=== PATIENT | male | born 1955 | race African-American/Black ===

== ENCOUNTER 2023-11-12 10:43 | Outpatient (AMB) | payer MEDICARE, MEDICAID, SELFPAY ==
--- NOTE | 2023-11-12 10:53 | MHC.OFFVIS ---
Vital Signs 11/12/23 10:55 Height 5 ft 11 in Weight 190 lb BMI 26.5 BP 126/72 Blood Pressure Location Rt brachial Position Sitting Respiration 16 Pulse 63 Pulse Source Pulse Oximeter Pulse Oximetry (%) 99 Oxygen Delivery Method Room Air Intake Visit Reasons: ENP-Seizure disorder Intake Note: Pt presents to the office for new pt consultation for seizure disorder. Umbrella Finisher Required: No Allergies No Known Allergies Allergy (Verified 11/12/23 10:54) Medication List - Last Reconciled 11/15/23 by HALLIE Smith atorvastatin 40 mg PO DAILY carvedilol 12.5 mg PO BID insulin glargine (Basaglar KwikPen U-100 Insulin) units subcut levetiracetam 1,500 mg PO BID lisinopril 10 mg PO DAILY metformin 1,000 mg PO BID HPI Comments Details: Right-handed 68-yr-old male presents for neurological evaluation of seizure disorder. Pt is accompanied by his guardian and brother, Eric. Pt himself is a poor historian d/t profound STM loss. History is obtained from pt's brother and review of [facility] notes. 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 Pt's brother states that pt suffered a large subarchnoid bleed prior to 2009, and then developed seizures and STM loss. Denies h/o seizure activity prior to SAH. He is on Keppra 500mg po TID. His brother states his last seizure was 2-3 months ago, but does not know what his typical seizure presents as. Per SNF notes rec'd- pt is currently on Keppra 1500mg bid. Per [facility], last fill of VimPat 200mg bid was in Mar 2023. Pt denies usual pain, mood changes, anxiety/irritability. Pt states he is eating well, sleeping well. Per review of [facility] notes: July 2021, [facility] admission- for new onset seizure activity in the setting of past subarachnoid hemorrhage, right anterior temporal and right parietal encephalomalacia and was discharged on Keppra 500 twice daily. August 2022 hospital admission: for left-sided weakness and left gaze deviation without any evidence of acute stroke and had a witnessed seizure in the ER, was given Keppra 2 g and discharged on Keppra 2 g daily.? Dec 2022 [facility] admission- for episodes of incontinence as well as staring/gazing episodes, was found to be in status on video EEG treated with Keppra, Vimpat and Ativan, and was subsequently intubated, treated with fentanyl, Vimpat, valproic acid and propofol.? Hospital course complicated by aspiration pneumonia, discharged to rehab, Depakote had been planned to be discontinued on 01/08, he was discharged on Keppra 1.5 g every 12 hours lacosamide 200 twice daily. Out-pt [facility] neurology appt on 04/12/23: accompanied by his neice?timmy Jorge?([phone]), POA is his brother Eric Patel ([phone]), currently at [facility] living in the dementia unit, there is no paperwork that accompanied him today.??No definite seizures?since he was discharged?from the hospital, appears to be tolerating his medication well?they were unsure?if he had actually stopped the?Depakote, never unsure of what his current meds were. Keppra and Vimpat were continued. Pt has not had f/u at [facility] neuro since Mar. Prior workup: CT head 12/13/2022: There is chronic bifrontal and right parietal, temporal encephalomalacia with ex vacuo dilatation of the right lateral ventricle, there is also basilar artery stent noted, as well as left-sided ventriculoperitoneal shunt with the tip at the occipital horn in the left lateral ventricle unchanged. [facility] Medical History (Updated 11/15/23 @ 21:17 by HALLIE Smith) SAH (subarachnoid hemorrhage) Encephalopathy Hyperlipidemia Essential hypertension Onychomycosis Vascular dementia Seizure Cataract Microalbuminuria Diabetes Surgical History (Updated 11/15/23 @ 21:13 by HALLIE Smith) S/P coil embolization of cerebral aneurysm Family History Mother HTN (hypertension) Diabetes Sister Diabetes HTN (hypertension) Social History Alcohol intake: never Patient Tobacco Use Status: Former Tobacco user Review of Systems Const All systems reviewed & are unremarkable except as noted in HPI and below Physical Exam Vital Signs: Last Vital Signs Pulse 63 11/12/23 10:55 Resp 16 11/12/23 10:55 BP 126/72 11/12/23 10:55 Pulse Ox 99 11/12/23 10:55 Oxygen Delivery Method Room Air 11/12/23 10:55 BMI result Body Mass Index 26.5 Const General: cooperative and no acute distress HEENT Head: Yes normocephalic Resp Effort & Inspection: normal respiratory effort and able to speak in complete sentences Neuro Other: A&O to person, and partially to location. He has very poor STM. He is able to follow instructions throughout the PE. 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 Pt has had positive VEEG at [facility]. Code(s): G40.909 - Epilepsy, unspecified, not intractable, without status epilepticus Category: Medical Plan Continue Keppra 1500mg bid. Pt has not had any witnessed seizure activity since moving into fpc. Possibly pt was having previous breakthrough seizures r/t poor medication compliance related to poor STM. If seizure s/s recur, resume Lacosamide 200mg bid and refer back to [facility] in their epilepsy clinic. Pt to follow-up in 6 months or sooner prn. Coding Level of Care Code New Pt Level 4 (27314) Diagnoses Seizure disorder G40.909
[2023-11-12 10:55] VITALS: BP 126/72; PULSE 63; RESP 16; O2SAT 99; BMI 26.5
== END 2023-11-12 11:47 | disposition home or self-care (01) ==
PROVIDERS: PCP Internal Medicine; Visit Provider Nurse Practitioner Family
DX: G40.909 Epilepsy, unspecified, not intractable, without status epilepticus (principal)
CPT/HCPCS: 99204

== ENCOUNTER → 2023-11-12 10:43 | Outpatient (BNVA) | payer MEDICARE, MEDICAID, SELFPAY | PROVIDERS: PCP Internal Medicine; Visit Provider Nurse Practitioner Family | DX: G40.909 Epilepsy, unspecified, not intractable, without status epilepticus (principal) | CPT/HCPCS: 99202 ==